=== PATIENT | female | born 1960 | race Caucasian/White ===

== ENCOUNTER → 2019-06-15 08:37 | Outpatient (CLI) | payer SELFPAY ==
--- NOTE | 2019-06-15 08:57 | US_ITS ---
STUDY: ULTRASOUND BREAST - RIGHT REASON FOR EXAM: Female, 59 years old. Palpable lump in the right breast. TECHNIQUE: Axial and longitudinal images of the RIGHT breast were performed with a high resolution ultrasound transducer. # OF IMAGES: 27 COMPARISON: Comparison is made with prior mammogram done earlier in the day. FINDINGS: RIGHT Breast: The palpable abnormality corresponds to a 1.9 cm x 1.3 cm x 0.9 cm cyst at the 12:00 position of the breast at 3 cm from the nipple. Low-level echoes are seen along its inferior aspect. The patient has a history of prior trauma with prior hematoma. A follow-up sonogram in 4 months is recommended. US/Breast Limited Unilateral IMPRESSION: 1.9 cm x 1.3 cm x 0.9 cm cyst with low-level echoes along its inferior aspect at the 12:00 position of the breast at 3 cm from nipple. With the patient''s history of prior trauma, this may be a resolving hematoma. A follow-up sonogram of the right breast is recommended in 4 months. ASSESSMENT CATEGORY: BIRADS Category 3: Probably Benign - Short-Interval Follow-up Suggested. A letter regarding these results will be sent to the patient by the facility within 30 days. Electronically Signed: Alex Zamarripa, at 10:57 EDT , Service support ,
--- NOTE | 2019-06-15 08:57 | BI_ITS ---
MAMMOGRAPHY - BILATERAL DIAGNOSTIC REASON FOR EXAM: Female, 59 years old. Right breast lump. History of prior trauma to the breast with hematoma. PERTINENT HISTORY: Aunt with breast cancer. TECHNIQUE: Digital bilateral breast davon (3D mammographic acquisition) in the CC and MLO projections. 2-D mediolateral oblique (MLO) and craniocaudad (CC) views of both breasts were obtained. CAD: Full Field Digital Mammography with Computer Added Detection was performed. COMPARISON: Comparison is made with prior examination dated January 01, 2019. FINDINGS: Breast Composition: There are scattered areas of fibroglandular density. There are no dominant masses or suspicious calcifications. Stable benign-appearing lymph node in the upper lateral aspect of the right breast. No other significant abnormalities are identified. There has been no significant change since the prior study. BI/DIAG MAMM W/CAD, BILAT IMPRESSION: Stable bilateral diagnostic mammogram. With the patient''s history of a palpable lump in the right breast, correlation with ultrasound is recommended. ASSESSMENT CATEGORY: BIRADS Category 0: Incomplete. Need additional imaging evaluation. A letter regarding these results will be sent to the patient by the facility within 30 days. Approximately 10% of breast cancers are not detected by mammography. A normal mammogram should not delay biopsy of a clinically suspicious abnormality. Electronically Signed: Alex Zamarripa, at 12:33 EDT , Service support ,
== END ==
PROVIDERS: PCP Family Medicine; Referring Provider Family Medicine; Visit Provider Family Medicine
DX: N60.01 Solitary cyst of right breast (principal)
CPT/HCPCS: 76642; 77062; 77066; G0279